=== PATIENT | male | born 1970 | race Caucasian/White ===

== ENCOUNTER 2023-08-25 15:41 | Inpatient (IN) | payer OTHER, SELFPAY ==
--- NOTE | ~2023-08-25 | XR_ITS ---
EXAMINATION: XR chest 2V DATE: 08/25/2023 18:29 INDICATION: Sepsis and animal bite at the right hand TECHNIQUE: PA and lateral views of the chest were obtained. COMPARISON: None FINDINGS: The lungs are clear with no focal airspace opacities, pulmonary edema, pleural effusion or pneumothor ax. Symmetric small nipple shadows project over the cephalad margin of the bilateral anterior sixth r ibs. The cardiomediastinal silhouette is normal. Upper thoracic spondylosis. IMPRESSION: 1. No acute cardiopulmonary disease. Reviewed, dictated and finalized at location A. [employer] BI[employer]HEMIST
--- NOTE | ~2023-08-25 | XR_ITS ---
EXAMINATION: 1. XR hand RT min 3V 2. XR wrist RT min 3V DATE: 08/25/2023 16:01 INDICATION: Right hand dog bite. TECHNIQUE: 4 views of right hand and 4 views of the right wrist were obtained. COMPARISON: None. FINDINGS: RIGHT WRIST: Bone alignment is normal. No fracture. There is severe osteoarthritis of first carpometa carpal joint with loose bodies. RIGHT HAND: Bone alignment is normal. No fracture. There is moderate osteoarthritis of second metacar pophalangeal joint. IMPRESSION: 1. No fracture or radiopaque foreign body. 2. Polyarticular osteoarthritis. Reviewed, dictated and finalized at location A. [employer] PROGRAM COORDINATOR IMPRESSION: 1. No fracture or radiopaque foreign body. 2. Polyarticular osteoarthritis.
[2023-08-25 16:07] VITALS: BP 99/65; PULSE 67; RESP 18; TEMP 36.6; O2SAT 97
--- NOTE | 2023-08-25 18:04 | ED.GENADULT ---
[facility] - General Adult General Chief complaint: Extremity Injury, Upper Stated complaint: R hand injury Time Seen by Provider: 08/25/23 18:04 Source: patient Mode of arrival: ambulatory Limitations: no limitations History of Present Illness HPI narrative: This is a 52-year-old male who presents to the ED with chief complaint of right hand and wrist pain and swelling onset x2 days. Reports that he was bitten by his friend's dog on Friday but was not evaluated for this. 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 He has been trying Tylenol and Aleve with minimal relief. States the pain is mainly in the wrist area and radiates up into the hand. Reports difficulty with range of motion and with making a fist and extending the fingers, due to pain. Denies fevers, chills, nausea, vomiting. Unsure of tetanus status. Does note that the dog is up-to-date on shots. Related Data Home Medications Medication Instructions Recorded Confirmed No Home Medications 08/25/23 08/25/23 Allergies Allergy/AdvReac Type Severity Reaction Status Date / Time No Known Allergies Allergy Verified 08/25/23 23:53 Review of Systems Review of Systems: All systems as dictated in [facility] Family History Family History (Updated 08/26/23 @ 00:05 by Susana Lugo RN) Father Heart attack Liver cancer Mother Hypertension Social History Social History Alcohol intake: never Exam Narrative: GENERAL: Well-appearing, well-nourished, and in no acute distress. HEAD: Normocephalic, atraumatic. EYES: PERRLA and EOMI. ENT: Nares clear, no rhinorrhea or epistaxis. Mucous membranes moist. Oropharynx without tonsillar hypertrophy exudate or other lesions. NECK: Supple. No adenopathy or masses. CHEST: No respiratory distress. Clear to auscultation. No wheezes rales or rhonchi HEART: Tachycardic in the 110s. Regular.. No murmur heard. Normal peripheral pulses. ABDOMEN: Soft, nontender, nondistended, normal active bowel sounds. MSK: LUE: Benign. RUE: significant swelling and tenderness throughout the dorsum of right hand extending into the wrist. Mild erythema. No area of induration or fluctuance. Neurovascularly intact distally. Negative [place] signs. Both hands are visibly soiled. SKIN: Warm, dry, no rash. Mild warmth to the right hand. Three distinct punctate scabbed over lesions to the right wrist and hand NEURO: Alert and oriented x3. No focal deficits. PSYCH: Normal mood and affect. Course Vital Signs Vital signs: Vital Signs Temperature 97.9 F 08/25/23 16:07 Pulse Rate 67 08/25/23 16:07 Respiratory Rate 18 08/25/23 16:07 Blood Pressure 99/65 L 08/25/23 16:07 Pulse Oximetry 97 08/25/23 16:07 Temperature 98.4 F 08/25/23 23:52 Pulse Rate 98 08/25/23 23:52 Respiratory Rate 16 08/25/23 23:52 Blood Pressure 138/77 08/25/23 23:52 Pulse Oximetry 100 08/25/23 23:52 Medical Decision Making MDM Narrative Medical decision making narrative: Medical screening exam performed by advanced practice provider in triage. Vital Signs Vital Signs: Vital Signs Temperature 97.9 F 08/25/23 16:07 Pulse Rate 67 08/25/23 16:07 Respiratory Rate 18 08/25/23 16:07 Blood Pressure 99/65 L 08/25/23 16:07 Pulse Oximetry 97 08/25/23 16:07 Temperature 98.4 F 08/25/23 23:52 Pulse Rate 98 08/25/23 23:52 Respiratory Rate 16 08/25/23 23:52 Blood Pressure 138/77 08/25/23 23:52 Pulse Oximetry 100 08/25/23 23:52 Lab Data 08/25/23 18:19 08/25/23 18:19 Labs: Lab Results 08/25/23 08/25/23 Range/Units 18:19 19:12 WBC 16.5 H (4.5-10.0) K/mm3 RBC 4.21 L (4.6-6.20) M/mm3 Hgb 14.1 (14.0-18.0) g/dL Hct 41.8 L (42.0-52.0) % MCV 99.3 (80-100) fl MCH 33.5 (26-34) pg MCHC 33.7
[2023-08-25 18:05] VITALS: BP 112/74; PULSE 109; RESP 18; O2SAT 98
[2023-08-25 18:26] LABS: Basophils Absolute Auto 0.1 K/mm3 (0.0-0.1); Basophils Percent Auto 0.4 % (0.2-1.2); Eosinophils Absolute Auto 0.1 K/mm3 (0-0.3); Eosinophils Percent Auto 0.5 % (0-4.4); Hematocrit 41.8 % (42.0-52.0); Hemoglobin 14.1 g/dL (14.0-18.0); Immature Granulocyte Absolute 0.11 K/mm3 (0.00-0.031); Immature Granulocyte Percent A 0.7 % (0-0.5); Lymphocytes Absolute Auto 1.62 K/mm3 (0.9-3.2); Lymphocytes Percent Auto 9.8 % (18.3-44.2); Mean Corpuscular HGB Conc 33.7 g/dl (32-36); Mean Corpuscular Hemoglobin 33.5 pg (26-34); Mean Corpuscular Volume 99.3 fl (80-100); Mean Platelet Volume 9.7 fl (7.4-10.4); Monocytes Absolute Auto 1.4 K/mm3 (0.1-0.6); Monocytes Percent Auto 8.6 % (2.6-8.5); Neutrophils Absolute Auto 13.2 K/mm3 (1.3-6.7); Platelet Count Result 267 k/mm3 (150-375); Red Blood Count 4.21 M/mm3 (4.6-6.20); Red Cell Distribution Width 12.2 % (11.5-14.5); White Blood Count 16.5 K/mm3 (4.5-10.0)
[2023-08-25 18:35] LABS: Lactic Acid Reflex 1.8 mmol/L (0.7-2.0)
[2023-08-25 18:37] LABS: Prothrombin Time 13.8 Seconds (11.1-14.7)
[2023-08-25 18:38] LABS: Partial Thromboplastin Time 36.9 SECONDS (22.3-36.8)
[2023-08-25 18:49] LABS: Alanine Aminotransferase 18 U/L (6-50); Albumin Level 4.2 g/dL (3.5-5.1); Alkaline Phosphatase 97 U/L (38-126); Anion Gap 13 mmol/L (8-16); Aspartate Amino Transferase 28 U/L (17-59); Bilirubin,Total 0.7 mg/dL (0.2-1.3); Blood Urea Nitrogen 13 mg/dL (9-20); Calcium 9.2 mg/dL (8.4-10.2); Carbon Dioxide 23 mmol/L (22-30); Chloride 96 mmol/L (98-107); Estimated CRCL calculation 118 ml/min; Estimated Glomerular Filt Rate > 60; Glucose 106 mg/dL (65-110); Potassium 3.3 mmol/L (3.4-5.0); Sodium 132 mmol/L (137-145)
[2023-08-25 19:01] LABS: CRP 26.6 mg/dL (<1.0)
[2023-08-25 19:36] LABS: Appearance Urine Clear (Clear); Bacteria Urine None Seen /hpf; Bilirubin Urine Negative (Negative); Blood Urine Negative (Negative); Color Urine Yellow (Yellow); Glucose Urine UA Negative (Negative); Ketones Urine Trace mg/dL (Negative); Leukocyte Esterase Ur Trace LEU/UL (Negative); Need Manual Microscopic Reviewed; Nitrate Urine Negative (Negative); Protein Urine Trace mg/dL (Negative); RBC Urine 0-2 /hpf (0-2); Specific Grav Ur 1.025 (1.001-1.035); Spermatozoa Urine Present; Squamous Epithelial Cell Urine None seen /hpf (Few); WBC Urine 0-5 /hpf; pH Urine 5.5 (5.0-9.0)
[2023-08-25 19:37] LABS: Add Urine Microscopic? YES
[2023-08-25] MEDS: SODIUM CHLORIDE 0.9% IV 1,000 ML 999 ML IV CONT (20:09)
[2023-08-25] MEDS: TETANUS,DIPHTHERIA,AC PERTUSSIS ADULT (0.5 ML) BOOSTRIX IM (20:09)
[2023-08-25] MEDS: AMPICILLIN SULB 3 GM/NS 100 ML 3 GM/100 ML VIAL IVPB (20:09)
[2023-08-25] MEDS: ONDANSETRON INJ 4 MG/2 ML VIAL IV PUSH (20:09)
[2023-08-25] MEDS: MORPHINE SULFATE (*CRX) 4 MG/ML INJ IV PUSH ×2 (20:10→23:50)
--- NOTE | 2023-08-25 20:56 | ED.UPPEXIN ---
HPI - Extremity Injury (Upper) General Chief Complaint: Extremity Injury, Upper <RADHA Palomo Last Filed: 08/26/23 00:17> Stated Complaint: R hand injury <RADHA Palomo Last Filed: 08/26/23 00:17> Time Seen by Provider: 08/25/23 18:04 <RADHA Palomo Last Filed: 08/26/23 00:17> Source: patient <RADHA Palomo Last Filed: 08/26/23 00:17> Mode of arrival: ambulatory <RADHA Palomo Last Filed: 08/26/23 00:17> Limitations: no limitations <RADHA Palomo Last Filed: 08/26/23 00:17> History of Present Illness HPI narrative: Patient is 50-year-old male who presents the ED with report of right hand pain. Patient reports he was bit by his own dog on Friday. He sustained bite wounds to right wrist and hand. Over last couple of days, patient has developed worsening pain, redness, swelling to his R hand extending into his wrist and forearm. He reports chills last night, denies documented fever. He has not taken anything for the pain today. Denies drainage from the wounds. Dog is up-to-date on its vaccines. Patient's tetanus unknown. <RADHA Palomo Last Filed: 08/26/23 00:17> Related Data Home Medications: Home Medications Medication Instructions Recorded Confirmed No Home Medications 08/25/23 08/25/23 <RADHA Palomo Last Filed: 08/26/23 00:17> Allergies/Adverse Reactions: Allergies Allergy/AdvReac Type Severity Reaction Status Date / Time No Known Allergies Allergy Verified 08/25/23 23:53 <RADHA Palomo Last Filed: 08/26/23 00:17> Review of Systems Review of Systems: CONSTITUTIONAL: See HPI. SKIN: See HPI. MUSCULOSKELETAL: See HPI. NEUROLOGIC: Denies headache, numbness, or weakness. <Patience Guadalupe PA-C - Last Filed: 08/26/23 00:17> All systems reviewed & are unremarkable except as noted in HPI and below <Patience Guadalupe PA-C - Last Filed: 08/26/23 00:17> [facility] Family History Family History: Family History (Updated 08/26/23 @ 00:05 by Susana Lugo RN) Father Heart attack Liver cancer Mother Hypertension <Patience Guadalupe PA-C - Last Filed: 08/26/23 00:17> Social History Social History: Social History Alcohol intake: never <Patience Guadalupe PA-C - Last Filed: 08/26/23 00:17> Exam Narrative: GENERAL: Uncomfortable appearing, well-nourished, non-toxic, in mild acute distress. HEAD: Normocephalic, atraumatic. NECK: Supple. No adenopathy, no masses. RESPIRATORY: Airway patent, respirations nonlabored. Clear to auscultation bilaterally, no rales, rhonchi, wheezing. CARDIOVASCULAR: Borderline tachycardic with regular rhythm without murmurs, rubs, or gallops. Radial pulses 2+ and equal bilaterally. MUSCULOSKELETAL: Moves all extremities. Moderate swelling noted to right hand diffusely, extending almost to elbow. Hand/wrist/ forearm is erythematous, warm, significantly tender to any palpation. Hand almost appears contracted, held in flexed position, pain with any movement of hand/fingers. SKIN: Warm, dry, normal color. No rashes. Small puncture wounds noted to dorsum of right hand and near distal on dorsal surface. Larger wound scabbed over to ventral forearm several cm proximal from wrist. Calluses noted to flexor surfaces of fingers, no wounds seen on flexor surfaces. No drainage from wounds. No focal abscesses or areas of palpable fluctuance. NEURO: A&O X3. Speech clear. Cranial nerves II-XII grossly intact. No ataxic movements. PSYCHIATRIC: Appropriate mood and affect. Normal interaction. <Patience Guadalupe PA-C - Last Filed: 08/26/23 00:17> Course [employer]ENT/PA Physician Supervision This visit was performed by both a physician and an APC. I performed all aspects of the MDM as documen
[2023-08-25] MEDS: POTASSIUM CHLORIDE 20 MEQ ER TABLET 40 MEQ PO (21:05)
[2023-08-25 21:27] LABS: Erythrocyte Sedimentation Rate 25 mm/hr (0-20)
[2023-08-25 21:56] VITALS: BP 114/68; PULSE 106; RESP 18; O2SAT 98
[2023-08-25 22:22] VITALS: BP 154/94; PULSE 101; RESP 18; TEMP 36.4; O2SAT 99
--- NOTE | 2023-08-25 23:40 | ADMGEN ---
This patient, Zac Mcallister, was admitted to 3 [facility] Surg Room 301-01. Patient/family oriented to hospital policies and general routines including ID bracelet, bed and alarms, visiting hours, pain management, procedures, bathroom and other care routines, personal items, smoking policy, room service/diet, and visiting hours. Information on how to activate the Rapid Response Team has been discussed. Patient/Family are encouraged to report perceived risks to care and to ask questions if they do not understand what they are told or what they should do.
[2023-08-25 23:52] VITALS: BP 138/77; PULSE 98; RESP 16; TEMP 36.9; O2SAT 100; BMI 21.2
[2023-08-26] MEDS: AMPICILLIN SULB 3 GM/NS 100 ML 3 GM/100 ML VIAL IVPB ×4 (01:34→20:15)
[2023-08-26] MEDS: MORPHINE SULFATE (*CRX) 4 MG/ML INJ IV PUSH ×4 (02:03→20:38)
[2023-08-26 05:06] VITALS: BP 135/65; PULSE 96; RESP 14; TEMP 36.8; O2SAT 99
[2023-08-26 08:10] LABS: Basophils Absolute Auto 0.1 K/mm3 (0.0-0.1); Basophils Percent Auto 0.3 % (0.2-1.2); Eosinophils Absolute Auto 0.1 K/mm3 (0-0.3); Eosinophils Percent Auto 0.4 % (0-4.4); Hematocrit 41.1 % (42.0-52.0); Hemoglobin 13.5 g/dL (14.0-18.0); Immature Granulocyte Absolute 0.14 K/mm3 (0.00-0.031); Lymphocytes Absolute Auto 1.21 K/mm3 (0.9-3.2); Lymphocytes Percent Auto 8.4 % (18.3-44.2); Mean Corpuscular HGB Conc 32.8 g/dl (32-36); Mean Corpuscular Hemoglobin 33.1 pg (26-34); Mean Corpuscular Volume 100.7 fl (80-100); Monocytes Absolute Auto 1.6 K/mm3 (0.1-0.6); Neutrophils Absolute Auto 11.3 K/mm3 (1.3-6.7); Neutrophils Percent Auto 78.9 % (45.5-73.1); Platelet Count Result 268 k/mm3 (150-375); Red Blood Count 4.08 M/mm3 (4.6-6.20); Red Cell Distribution Width 12.1 % (11.5-14.5); White Blood Count 14.3 K/mm3 (4.5-10.0)
[2023-08-26 08:17] LABS: Lactic Acid Reflex 0.9 mmol/L (0.7-2.0)
[2023-08-26] MEDS: ACETAMINOPHEN 325 MG TABLET 650 MG PO (08:29)
[2023-08-26 08:31] LABS: Anion Gap 7 mmol/L (8-16); Blood Urea Nitrogen 11 mg/dL (9-20); Calcium 8.7 mg/dL (8.4-10.2); Carbon Dioxide 27 mmol/L (22-30); Chloride 97 mmol/L (98-107); Estimated CRCL calculation 113 ml/min; Estimated Glomerular Filt Rate > 60; Glucose 103 mg/dL (65-110); Potassium 4.4 mmol/L (3.4-5.0); Sodium 131 mmol/L (137-145)
[2023-08-26 08:36] LABS: CRP 26.4 mg/dL (<1.0)
[2023-08-26 08:57] LABS: Procalcitonin 4.4 ng/mL
--- NOTE | 2023-08-26 11:54 | WPDCN ---
Assessment and Plan Assessment and plan (1) Dog bite of right hand with infection: Qualifiers: Encounter type: initial encounter Qualified Code(s): S61.451A - Open bite of right hand, initial encounter; L08.9 - Local infection of the skin and subcutaneous tissue, unspecified; W54.0XXA - Bitten by dog, initial encounter Code(s): S61.451A - Open bite of right hand, initial encounter; L08.9 - Local infection of the skin and subcutaneous tissue, unspecified; W54.0XXA - Bitten by dog, initial encounter Status: Acute Assessment and Plan: 52yo male with right hand and forearm cellulitis after dog bite improving with conservative mgmt xray images revwied and agree with report reviwed ER documentation discussed impression and Dx and hopeful expectation for conitnued improvement with conservative mgmt. no surgical intervention indicated at this time. Plan: 1) cont iV abx per primary 2) elevation 3) warm compresses or warm bath soaks bid-tid 4) will continue to follow HPI Data of Consult Date/Time: 08/26/23 11:54 Requesting Physician: Shyann Osborne DO Primary Care Provider: Emmett Tapia MD Consult Narrative Narrative: Zac Mcallister is a 52 year old male admitted for right hand/wrist cellulitis after dog bite bitten by his dog friday morning, cleaned with perxoide and went to work. that evening and the next day the hand became warm, swollen and painful. presented to [facility] and admitted for IV abx and elevation pt notes interval improvement since admission and now able to move a little more and pain improving [facility] Family History Family History (Updated 08/26/23 @ 00:05 by Susana Lugo RN) Father Heart attack Liver cancer Mother Hypertension Social History Social History Smoking packs per day: 0.3 Smoking cigarettes per day: 6.0 Years smoked: 30 Smoking pack-years: 9.00 Smoking status: Current every day smoker Alcohol intake: never Lack of Transportation: No Lack of Food: Never True Current Housing: I Have Housing Concerned About Future Housing: No Difficulty Paying Gas/Electric Bills: No Difficulty Paying for Meds: No Currently Unemployed: No Education: Bachelor's Degree Difficulty w/ Childcare or Family Care: No Spiritual care concerns: No Meds Home Medications and Allergies Home Medications Medication Instructions Recorded Confirmed Type No Home Medications 08/25/23 08/25/23 History Allergies Allergy/AdvReac Type Severity Reaction Status Date / Time No Known Allergies Allergy Verified 08/25/23 23:53 Vital Signs Vital Signs - 24 hr 08/25/23 16:07 08/25/23 18:05 08/25/23 21:56 Temperature 36.6 C Pulse Rate 67 109 H 106 H Respiratory Rate 18 18 18 Blood Pressure 99/65 L 112/74 114/68 Pulse Oximetry 97 98 98 Oxygen Delivery 08/25/23 22:22 08/26/23 00:13 08/25/23 23:52 Temperature 36.4 C L 36.9 C Pulse Rate 101 H 98 Respiratory Rate 18 16 Blood Pressure 154/94 H 138/77 Pulse Oximetry 99 100 Oxygen Delivery Room Air 08/26/23 05:06 08/26/23 08:00 Temperature 36.8 C Pulse Rate 96 Respiratory Rate 14 Blood Pressure 135/65 Pulse Oximetry 99 Oxygen Delivery Room Air Exam Narrative: Gen: right hand and volar forearmwith 3 puncture wounds with dry eschar. right forearm to distal hand dorsum notably edematous without fluctuance and hyperemia/erythema tracking proximally with mild tenderness ROM: limited but moves all digits spontaneously. no pain on passive stretch Vascular: Warm and well perfused Sensation: Intact to light touch with some subjective paresthesia due to edema Results Labs 08/26/23 07:48 08/26/23 07:48 Labs: Short CBC 08/25/23 08/26/23 Range/Units 18:19 07:48 WBC 16.5 H 14.3 H (4.5-10.0) K/mm3 Hgb 14.1 13.5 L (14.0-18.0) g/dL Hct 41.8 L 41.
[2023-08-26 14:15] VITALS: BP 112/73; PULSE 98; RESP 16; TEMP 37.4; O2SAT 94
--- NOTE | 2023-08-26 17:12 | PM.IMHP ---
H&P: HPI History of Present Illness Date/Time: 08/26/23 17:12 Chief Complaint: right hand swelling/ dog bite Narrative: pt reports dog bite recently. he did nothing/nor did he have it evaluted, went back to work. on friday, 1 dayprior to admission his hand was extremely swollen. better now since arrival. still with pain Review of Systems Review of Systems: All systems reviewed & are unremarkable except as noted in HPI and below PMFSH Family History Family History (Updated 08/26/23 @ 00:05 by Susana Lugo RN) Father Heart attack Liver cancer Mother Hypertension Social History Social History Smoking packs per day: 0.3 Smoking cigarettes per day: 6.0 Years smoked: 30 Smoking pack-years: 9.00 Smoking status: Current every day smoker Alcohol intake: never Lack of Transportation: No Lack of Food: Never True Current Housing: I Have Housing Concerned About Future Housing: No Difficulty Paying Gas/Electric Bills: No Difficulty Paying for Meds: No Currently Unemployed: No Education: Bachelor's Degree Difficulty w/ Childcare or Family Care: No Spiritual care concerns: No Meds Home Medications and Allergies Home Medications Medication Instructions Recorded Confirmed Type No Home Medications 08/25/23 08/25/23 History Allergies Allergy/AdvReac Type Severity Reaction Status Date / Time No Known Allergies Allergy Verified 08/25/23 23:53 Vital Signs Vital Signs - 24 hr 08/25/23 18:05 08/25/23 21:56 08/25/23 22:22 Temperature 97.5 F L Pulse Rate 109 H 106 H 101 H Respiratory Rate 18 18 18 Blood Pressure 112/74 114/68 154/94 H Pulse Oximetry 98 98 99 Oxygen Delivery 08/26/23 00:13 08/25/23 23:52 08/26/23 05:06 Temperature 98.4 F 98.3 F Pulse Rate 98 96 Respiratory Rate 16 14 Blood Pressure 138/77 135/65 Pulse Oximetry 100 99 Oxygen Delivery Room Air 08/26/23 08:00 08/26/23 14:15 Temperature 99.3 F Pulse Rate 98 Respiratory Rate 16 Blood Pressure 112/73 Pulse Oximetry 94 Oxygen Delivery Room Air Exam Const: General: comfortable and no acute distress Eyes: Pupils: Equal, round and reactive pupils present Resp: Effort & Inspection: normal respiratory effort Auscultation: clear to auscultation bilaterally Cardio: Rate: regular rate Rhythm: regular rhythm Heart sounds: no gallops, no murmurs and no rubs GI: GI Palp: Yes Soft to palpation Extrem: Other: right hand edematous, tender to palpation with erythema, no defined borders, progresses up to elbow but in decreasing fashion H&P: Results Labs Labs: Short CBC 08/25/23 08/26/23 Range/Units 18:19 07:48 WBC 16.5 H 14.3 H (4.5-10.0) K/mm3 Hgb 14.1 13.5 L (14.0-18.0) g/dL Hct 41.8 L 41.1 L (42.0-52.0) % Plt Count 267 268 (150-375) k/mm3 BMP 08/25/23 08/26/23 18:19 07:48 Sodium 132 L 131 L Potassium 3.3 L 4.4 Chloride 96 L 97 L Carbon Dioxide 23 27 BUN 13 11 Creatinine 0.60 L 0.60 L Glucose 106 103 Calcium 9.2 8.7 Liver Function 08/25/23 Range/Units 18:19 Total Bilirubin 0.7 (0.2-1.3) mg/dL AST 28 (17-59) U/L ALT 18 (6-50) U/L Alkaline Phosphatase 97 (38-126) U/L Albumin 4.2 (3.5-5.1) g/dL Urine 08/25/23 Range/Units 19:12 Urine Color Yellow (Yellow) Urine Appearance Clear (Clear) Urine pH 5.5 (5.0-9.0) Ur Specific [place] 1.025 (1.001-1.035) Urine Protein Trace (Negative) mg/dL Urine Glucose (UA) Negative (Negative) mg/dL Assessment and Plan Assessment and plan (1) Dog bite of right hand with infection: Qualifiers: Encounter type: initial encounter Qualified Code(s): S61.451A - Open bite of right hand, initial encounter; L08.9 - Local infection of the skin and subcutaneous tissue, unspecified; W54.0XXA - Bitten by dog, initial encounter Code(s): S61.451A -
[2023-08-26 20:00] VITALS: PULSE 101; RESP 16; O2SAT 96
[2023-08-26 20:46] VITALS: BP 122/88; PULSE 101; RESP 16; TEMP 36.6; O2SAT 96
[2023-08-27] MEDS: AMPICILLIN SULB 3 GM/NS 100 ML 3 GM/100 ML VIAL IVPB ×4 (01:44→20:15)
[2023-08-27 04:21] VITALS: BP 125/80; PULSE 84; RESP 14; TEMP 36.4; O2SAT 100
[2023-08-27] MEDS: MORPHINE SULFATE (*CRX) 4 MG/ML INJ IV PUSH ×4 (04:26→20:15)
[2023-08-27 06:14] LABS: Basophils Absolute Auto 0.1 K/mm3 (0.0-0.1); Basophils Percent Auto 0.5 % (0.2-1.2); Eosinophils Absolute Auto 0.1 K/mm3 (0-0.3); Eosinophils Percent Auto 0.7 % (0-4.4); Hematocrit 39.8 % (42.0-52.0); Hemoglobin 13.3 g/dL (14.0-18.0); Immature Granulocyte Absolute 0.09 K/mm3 (0.00-0.031); Immature Granulocyte Percent A 0.7 % (0-0.5); Lymphocytes Absolute Auto 1.67 K/mm3 (0.9-3.2); Lymphocytes Percent Auto 13.4 % (18.3-44.2); Mean Corpuscular HGB Conc 33.4 g/dl (32-36); Mean Corpuscular Hemoglobin 33.2 pg (26-34); Mean Corpuscular Volume 99.3 fl (80-100); Mean Platelet Volume 9.9 fl (7.4-10.4); Monocytes Absolute Auto 1.6 K/mm3 (0.1-0.6); Monocytes Percent Auto 13.1 % (2.6-8.5); Neutrophils Absolute Auto 8.9 K/mm3 (1.3-6.7); Neutrophils Percent Auto 71.6 % (45.5-73.1); Platelet Count Result 274 k/mm3 (150-375); Red Blood Count 4.01 M/mm3 (4.6-6.20); White Blood Count 12.4 K/mm3 (4.5-10.0)
[2023-08-27 06:25] LABS: Anion Gap 8 mmol/L (8-16); Blood Urea Nitrogen 14 mg/dL (9-20); Calcium 8.6 mg/dL (8.4-10.2); Carbon Dioxide 27 mmol/L (22-30); Chloride 94 mmol/L (98-107); Estimated CRCL calculation 113 ml/min; Estimated Glomerular Filt Rate > 60; Glucose 107 mg/dL (65-110); Potassium 3.7 mmol/L (3.4-5.0); Sodium 129 mmol/L (137-145)
[2023-08-27 06:49] LABS: Procalcitonin 2.8 ng/mL
[2023-08-27 14:00] VITALS: BP 122/88; PULSE 100; RESP 20; TEMP 36.3; O2SAT 97
--- NOTE | 2023-08-27 17:22 | PM.IMPN ---
Progress Note: A&P Assessment and Plan (1) Dog bite of right hand with infection: Qualifiers: Encounter type: initial encounter Qualified Code(s): S61.451A - Open bite of right hand, initial encounter; L08.9 - Local infection of the skin and subcutaneous tissue, unspecified; W54.0XXA - Bitten by dog, initial encounter Code(s): S61.451A - Open bite of right hand, initial encounter; L08.9 - Local infection of the skin and subcutaneous tissue, unspecified; W54.0XXA - Bitten by dog, initial encounter Status: Acute (2) Sepsis: Qualifiers: Sepsis acute organ dysfunction status: unspecified Sepsis type: sepsis due to unspecified organism Qualified Code(s): A41.9 - Sepsis, unspecified organism Code(s): A41.9 - Sepsis, unspecified organism Status: Acute Plan sepsis resolving. continue to monitor. continue unasyn patient eats one meal a day without any salt, and drinks multiple beers a couple times a week. his apparently chronic hyponatremia may be diet related. continue to monitor. Subjective Date/time seen: 08/27/23 17:22 Interval history: naoe. patient reports great relief in pain. able to sleep now. Review of Systems Review of Systems: All systems reviewed & are unremarkable except as noted in HPI and below Exam Const: General: comfortable Eyes: Pupils: Equal, round and reactive pupils present Resp: Effort & Inspection: normal respiratory effort Auscultation: clear to auscultation bilaterally Cardio: Rate: regular rate Rhythm: regular rhythm Heart sounds: no gallops, no murmurs and no rubs GI: GI Palp: Yes Soft to palpation and No Guarding due to palpation present (GI) Extrem: Other: edema only slightly improved from day prior Objective Data Vital Signs Vital Signs: Vital Signs - 24 hr 08/26/23 20:46 08/26/23 20:00 08/27/23 04:21 Temperature 98 F 97.6 F Pulse Rate 101 H 101 H 84 Respiratory Rate 16 16 14 Blood Pressure 122/88 125/80 Pulse Oximetry 96 96 100 Oxygen Delivery Room Air 08/27/23 09:30 08/27/23 14:00 Temperature 97.4 F L Pulse Rate 100 Respiratory Rate 20 Blood Pressure 122/88 Pulse Oximetry 97 Oxygen Delivery Room Air Intake/Output Intake/Output: Intake & Output 08/24/23 08/25/23 08/26/23 08/27/23 23:59 23:59 23:59 23:59 Intake Total 1100 1600 1500 Balance 1100 1600 1500 Meds/Results Medications: Active Medications Generic Name Dose Route Start Last Admin Trade Name Freq PRN Reason Stop Dose Admin Acetaminophen 650 mg 08/25/23 22:43 08/26/23 08:29 Acetaminophen 325 Mg Tablet PO 650 mg Q4H PRN Administration Mild Pain (1-3) or Fever Ampicillin Sodium/Sulbactam Sodium 3 gm in 100 mls @ 200 mls/hr 08/26/23 02:00 08/27/23 14:50 Unasyn 3 Gm/Ns 100 Ml IVPB Infused Q6H ROLANDO Infusion Morphine Sulfate 4 mg 08/25/23 22:43 08/27/23 15:18 Morphine Sulfate (*Crx) 4 Mg/Ml Inj IV PUSH 4 mg Q2H PRN Administration Pain Rated 7-10 Radiology Results: ITS Impressions Hand X-Ray 08/25/23 16:03 IMPRESSION: 1. No fracture or radiopaque foreign body. 2. Polyarticular osteoarthritis. Wrist X-Ray 08/25/23 16:03 IMPRESSION: 1. No fracture or radiopaque foreign body. 2. Polyarticular osteoarthritis. Chest X-Ray 08/25/23 18:41 IMPRESSION: 1. No acute cardiopulmonary disease. Labs Labs: Laboratory Results - last 24 hr 08/27/23 05:21 WBC 12.4 H RBC 4.01 L Hgb 13.3 L Hct 39.8 L MCV 99.3 MCH 33.2 MCHC 33.4 RDW 12.0 Plt Count 274 MPV 9.9 Immature Gran % (Auto) 0.7 H Neut % (Auto) 71.6 Lymph % (Auto) 13.[address] [place] % (Auto) 13.1 H Eos % (Auto) 0.7 Baso % (Auto) 0.5 Lymph # (Auto) 1.67 [place] # (Auto) 1.6 H Eos # (Auto) 0.1 Baso # (Auto) 0.1 Abs Immat Gran (auto) 0.09 H Absolute Neuts (auto) 8.9 H Absolute Nucleated RBC 0.0 Nucleated RBC % 0.0 Sodium 129 L Potassium 3.7 Chloride 94 L Carbon Di
--- NOTE | 2023-08-27 19:26 | PC.NURSE ---
On 08/27/23, the DISSOLVER OPERATOR, Pamela Martínez, provided care and completed [facility] documentation on this patient. I have reviewed the DISSOLVER OPERATOR's documentation and agree with the findings.
[2023-08-27 20:00] VITALS: PULSE 83; RESP 16; O2SAT 95
[2023-08-27 20:17] VITALS: BP 121/92; PULSE 83; RESP 16; TEMP 36.1; O2SAT 95
[2023-08-28] MEDS: AMPICILLIN SULB 3 GM/NS 100 ML 3 GM/100 ML VIAL IVPB ×4 (01:29→20:06)
[2023-08-28 05:27] VITALS: BP 122/78; PULSE 83; RESP 16; TEMP 36.3; O2SAT 96
[2023-08-28] MEDS: MORPHINE SULFATE (*CRX) 4 MG/ML INJ IV PUSH ×4 (05:42→20:12)
[2023-08-28 06:09] LABS: Basophils Absolute Auto 0.1 K/mm3 (0.0-0.1); Basophils Percent Auto 0.8 % (0.2-1.2); Eosinophils Absolute Auto 0.1 K/mm3 (0-0.3); Eosinophils Percent Auto 1.1 % (0-4.4); Hemoglobin 13.5 g/dL (14.0-18.0); Immature Granulocyte Absolute 0.16 K/mm3 (0.00-0.031); Immature Granulocyte Percent A 1.5 % (0-0.5); Lymphocytes Absolute Auto 1.99 K/mm3 (0.9-3.2); Lymphocytes Percent Auto 18.1 % (18.3-44.2); Mean Corpuscular HGB Conc 32.9 g/dl (32-36); Mean Corpuscular Hemoglobin 33.1 pg (26-34); Mean Corpuscular Volume 100.5 fl (80-100); Mean Platelet Volume 9.8 fl (7.4-10.4); Monocytes Absolute Auto 1.4 K/mm3 (0.1-0.6); Monocytes Percent Auto 12.9 % (2.6-8.5); Neutrophils Absolute Auto 7.2 K/mm3 (1.3-6.7); Neutrophils Percent Auto 65.6 % (45.5-73.1); Platelet Count Result 311 k/mm3 (150-375); Red Blood Count 4.08 M/mm3 (4.6-6.20); Red Cell Distribution Width 11.9 % (11.5-14.5)
[2023-08-28 06:15] LABS: Anion Gap 9 mmol/L (8-16); Blood Urea Nitrogen 16 mg/dL (9-20); Calcium 8.8 mg/dL (8.4-10.2); Carbon Dioxide 25 mmol/L (22-30); Chloride 96 mmol/L (98-107); Estimated CRCL calculation 98 ml/min; Estimated Glomerular Filt Rate > 60; Glucose 117 mg/dL (65-110); Potassium 4.1 mmol/L (3.4-5.0); Sodium 130 mmol/L (137-145)
[2023-08-28 06:57] LABS: Procalcitonin 1.8 ng/mL
--- NOTE | 2023-08-28 11:20 | PM.IMPN ---
Progress Note: A&P Assessment and Plan (1) Dog bite of right hand with infection: Qualifiers: Encounter type: initial encounter Qualified Code(s): S61.451A - Open bite of right hand, initial encounter; L08.9 - Local infection of the skin and subcutaneous tissue, unspecified; W54.0XXA - Bitten by dog, initial encounter Code(s): S61.451A - Open bite of right hand, initial encounter; L08.9 - Local infection of the skin and subcutaneous tissue, unspecified; W54.0XXA - Bitten by dog, initial encounter Status: Acute Plan one more day of IV unasyn, leukocytosis and procal coming down. starting to see the wrinkles on his right hand 2/2 relative decrease in edema. if still improving tomorrow, home on PO abx, likely augmentin chronic hyponatremia, encourage better PO and salt intake. ctm. lovenox qday for DVT prophlyaxis stable. Subjective Date/time seen: 08/28/23 11:20 Interval history: NAOE. pt believes swelling and pain is again better Review of Systems Review of Systems: All systems reviewed & are unremarkable except as noted in HPI and below Exam Const: General: comfortable and no acute distress Eyes: Pupils: Equal, round and reactive pupils present Resp: Effort & Inspection: normal respiratory effort Auscultation: clear to auscultation bilaterally, no crackles, no rales and no rhonchi Cardio: Rate: regular rate Rhythm: regular rhythm Heart sounds: no gallops, no murmurs and no rubs GI: GI Palp: Yes Soft to palpation and No Tenderness to palpation present (GI) Extrem: General: edema Other: poor skin turgor of right hand starting to appear, relative decrease swelling, pain to deep touch. sensation intact Objective Data Vital Signs Vital Signs: Vital Signs - 24 hr 08/27/23 14:00 08/27/23 20:17 08/27/23 20:00 Temperature 97.4 F L 97 F L Pulse Rate 100 83 83 Respiratory Rate 20 16 16 Blood Pressure 122/88 121/92 H Pulse Oximetry 97 95 95 Oxygen Delivery Room Air 08/28/23 05:27 Temperature 97.3 F L Pulse Rate 83 Respiratory Rate 16 Blood Pressure 122/78 Pulse Oximetry 96 Oxygen Delivery Intake/Output Intake/Output: Intake & Output 08/25/23 08/26/23 08/27/23 08/28/23 23:59 23:59 23:59 23:59 Intake Total 1100 1600 2400 980 Balance 1100 1600 2400 980 Meds/Results Medications: Active Medications Generic Name Dose Route Start Last Admin Trade Name Freq PRN Reason Stop Dose Admin Acetaminophen 650 mg 08/25/23 22:43 08/26/23 08:29 Acetaminophen 325 Mg Tablet PO 650 mg Q4H PRN Administration Mild Pain (1-3) or Fever Ampicillin Sodium/Sulbactam Sodium 3 gm in 100 mls @ 200 mls/hr 08/26/23 02:00 08/28/23 09:54 Unasyn 3 Gm/Ns 100 Ml IVPB 200 mls/hr Q6H ROLANDO Administration Morphine Sulfate 4 mg 08/25/23 22:43 08/28/23 10:02 Morphine Sulfate (*Crx) 4 Mg/Ml Inj IV PUSH 4 mg Q2H PRN Administration Pain Rated 7-10 Radiology Results: ITS Impressions Hand X-Ray 08/25/23 16:03 IMPRESSION: 1. No fracture or radiopaque foreign body. 2. Polyarticular osteoarthritis. Wrist X-Ray 08/25/23 16:03 IMPRESSION: 1. No fracture or radiopaque foreign body. 2. Polyarticular osteoarthritis. Chest X-Ray 08/25/23 18:41 IMPRESSION: 1. No acute cardiopulmonary disease. Labs Labs: Laboratory Results - last 24 hr 08/28/23 05:34 WBC 11.0 H RBC 4.08 L Hgb 13.5 L Hct 41.0 L MCV 100.5 H MCH 33.1 MCHC 32.9 RDW 11.9 Plt Count 311 MPV 9.8 Immature Gran % (Auto) 1.5 H Neut % (Auto) 65.6 Lymph % (Auto) 18.1 L Rowan % (Auto) 12.9 H Eos % (Auto) 1.1 Baso % (Auto) 0.8 Lymph # (Auto) 1.99 Rowan # (Auto) 1.4 H Eos # (Auto) 0.1 Baso # (Auto) 0.1 Abs Immat Gran (auto) 0.16 H Absolute Neuts (auto) 7.2 H Absolute Nucleated RBC 0.0 Nucleated RBC % 0.0 Sodium 130 L Potassium 4.1 Chloride 96 L Carbon Dioxide 25 Anion Gap 9 BUN 16 Creatinine 0.70 Estim Creat Clear
[2023-08-28] MEDS: ENOXAPARIN 40 MG/0.4 ML SYRINGE SUB-Q (12:09)
[2023-08-28 14:00] VITALS: BP 104/69; PULSE 89; RESP 16; TEMP 36.7; O2SAT 97
--- NOTE | 2023-08-28 19:37 | PC.NURSE ---
Pamela Martínez provided care for this patient on 08/28/23. I have reviewed her assessments and agree with her charting
[2023-08-28 20:05] VITALS: O2SAT 97
[2023-08-28 22:00] VITALS: BP 122/80; PULSE 89; RESP 14; TEMP 36.9; O2SAT 96
[2023-08-29] MEDS: AMPICILLIN SULB 3 GM/NS 100 ML 3 GM/100 ML VIAL IVPB ×4 (01:29→21:14)
[2023-08-29 06:00] VITALS: BP 99/72; PULSE 87; RESP 14; TEMP 36.6; O2SAT 92
[2023-08-29 06:38] LABS: Hematocrit 41.9 % (42.0-52.0); Hemoglobin 13.8 g/dL (14.0-18.0); Mean Corpuscular HGB Conc 32.9 g/dl (32-36); Mean Corpuscular Hemoglobin 32.5 pg (26-34); Mean Corpuscular Volume 98.8 fl (80-100); Mean Platelet Volume 9.7 fl (7.4-10.4); Platelet Count Result 360 k/mm3 (150-375); Red Blood Count 4.24 M/mm3 (4.6-6.20); Red Cell Distribution Width 11.9 % (11.5-14.5); White Blood Count 10.9 K/mm3 (4.5-10.0)
[2023-08-29 06:46] LABS: Anion Gap 10 mmol/L (8-16); Blood Urea Nitrogen 17 mg/dL (9-20); Calcium 9.2 mg/dL (8.4-10.2); Carbon Dioxide 26 mmol/L (22-30); Chloride 96 mmol/L (98-107); Estimated CRCL calculation 98 ml/min; Estimated Glomerular Filt Rate > 60; Glucose 110 mg/dL (65-110); Sodium 132 mmol/L (137-145)
[2023-08-29] MEDS: ENOXAPARIN 40 MG/0.4 ML SYRINGE SUB-Q (08:25)
[2023-08-29] MEDS: MORPHINE SULFATE (*CRX) 4 MG/ML INJ IV PUSH ×2 (08:30→13:46)
--- NOTE | 2023-08-29 08:55 | PM.IMPN ---
Progress Note: A&P Assessment and Plan (1) Dog bite of right hand with infection: Qualifiers: Encounter type: initial encounter Qualified Code(s): S61.451A - Open bite of right hand, initial encounter; L08.9 - Local infection of the skin and subcutaneous tissue, unspecified; W54.0XXA - Bitten by dog, initial encounter Code(s): S61.451A - Open bite of right hand, initial encounter; L08.9 - Local infection of the skin and subcutaneous tissue, unspecified; W54.0XXA - Bitten by dog, initial encounter Status: Acute Plan Right hand and arm cellulitis one more day of IV unasyn, leukocytosis and procal coming down. starting to see the wrinkles on his right hand 2/2 relative decrease in edema. Patient has restricted movement of right hand and right wrist. I have discussed this case with plastic surgeon, appreciate plastic surgeon's recommendations. No indication of surgical intervention, start higher dose Motrin, warm compression chronic hyponatremia, encourage better PO and salt intake. ctm. Add sodium chloride 1 g t.i.d. p.o. lovenox qday for DVT prophlyaxis stable. Subjective Date/time seen: 08/29/23 08:55 Interval history: I saw and examined patient today, patient still has severe pain of right hand, swelling, restricted movement of the right wrist Exam Narrative: GENERAL: Pleasant, in no acute distress. Well-nourished. - EYES: EOMI. Anicteric. - HENT: Moist mucous membranes. - LUNGS: Clear to auscultation bilaterally, no wheezing, rhonchi, or rales. - CARDIOVASCULAR: Regular rate and rhythm. No murmur. No JVD. - ABDOMEN: Soft, non-tender and non-distended. No palpable masses. - EXTREMITIES: No edema. Peripheral pulses 2+. Non-tender. - NEUROLOGIC: No focal neurological deficits. CN II-XII grossly intact. - PSYCHIATRIC: Awake, Alert and oriented x 3. Appropriate mood and affect. - SKIN:?right hand and forearm cellulitis, swelling of right hand, wrist movement is restricted, pulse palpable - LYMPH: No cervical lymphadenopathy. Objective Data Vital Signs Vital Signs: Vital Signs - 24 hr 08/28/23 10:20 08/28/23 14:00 08/28/23 20:00 Temperature 98.1 F Pulse Rate 89 Respiratory Rate 16 Blood Pressure 104/69 Pulse Oximetry 97 Oxygen Delivery Room Air Room Air 08/28/23 22:00 08/28/23 20:05 08/29/23 06:00 Temperature 98.4 F 97.9 F Pulse Rate 89 87 Respiratory Rate 14 14 Blood Pressure 122/80 99/72 L Pulse Oximetry 96 97 92 Oxygen Delivery Room Air Intake/Output Intake/Output: Intake & Output 08/26/23 08/27/23 08/28/23 08/29/23 23:59 23:59 23:59 23:59 Intake Total 1600 2400 2420 100 Balance 1600 2400 2420 100 Meds/Results Medications: Active Medications Generic Name Dose Route Start Last Admin Trade Name Omarq PRN Reason Stop Dose Admin Acetaminophen 650 mg 08/25/23 22:43 08/26/23 08:29 Acetaminophen 325 Mg Tablet PO 650 mg Q4H PRN Administration Mild Pain (1-3) or Fever Enoxaparin Sodium 40 mg 08/28/23 11:20 08/29/23 08:25 Enoxaparin 40 Mg/0.4 Ml Syringe SUB-Q 40 mg DAILY ROLANDO Administration Ampicillin Sodium/Sulbactam Sodium 3 gm in 100 mls @ 200 mls/hr 08/26/23 02:00 08/29/23 08:25 Unasyn 3 Gm/Ns 100 Ml IVPB 200 mls/hr Q6H ROLANDO Administration Morphine Sulfate 4 mg 08/25/23 22:43 08/29/23 08:30 Morphine Sulfate (*Crx) 4 Mg/Ml Inj IV PUSH 4 mg Q2H PRN Administration Pain Rated 7-10 Radiology Results: ITS Impressions Hand X-Ray 08/25/23 16:03 IMPRESSION: 1. No fracture or radiopaque foreign body. 2. Polyarticular osteoarthritis. Wrist X-Ray 08/25/23 16:03 IMPRESSION: 1. No fracture or radiopaque foreign body. 2. Polyarticular osteoarthritis. Chest X-Ray 08/25/23 18:41 IMPRESSION: 1. No acute cardiopulmonary disease. Labs Labs: Laboratory Results - last 24 hr 08/29/23 06:01 WBC 10.9 H RBC 4.24 L Hgb 13.8 L Hct 41.9 L MCV 98.8 MCH 32.5
[2023-08-29] MEDS: SODIUM CHLORIDE 1 GM TABLET PO ×3 (09:37→16:45)
--- NOTE | 2023-08-29 13:34 | WPDPN ---
Progress Note: A&P Assessment and Plan (1) Dog bite of right hand with infection: Qualifiers: Encounter type: initial encounter Qualified Code(s): S61.451A - Open bite of right hand, initial encounter; L08.9 - Local infection of the skin and subcutaneous tissue, unspecified; W54.0XXA - Bitten by dog, initial encounter Code(s): S61.451A - Open bite of right hand, initial encounter; L08.9 - Local infection of the skin and subcutaneous tissue, unspecified; W54.0XXA - Bitten by dog, initial encounter Status: Acute Plan 52yo male with resolving right hand dog bite cellulitis though persistant inflammation and pain. discussed imrpession and suspected Dx and noted conservative treatment recs to hopefully improve. no indication for surgical intervention at this time Plan: 1) elevation - 2-3 pillows 2) warm compresses or warm water soaks TID 3) high dose nsaids - i.e. 800mg ibuporofen [id number] if ok with primary Subjective Date/time seen: 08/29/23 13:34 Interval history: called my primary doctor noting patient hadn't been discharged and was still concerned regarding the right hand swelling and pain. patient seen and examined at bedside noting he was initially feeling better but he continues to have notable pain and swelling on the right hand despite the erythema improving. pt notes warm compresses or soaks haven't been done and hasn't really been elevating hand to any extent Exam Narrative: Gen: right hand stable dry eschar healing puncture sites on volar forearm and dorsum right hand. moderate edema persists around radial dorsal side of his hand which is relatively distant from bite wounds though pt notes dog was clamped on that area for a while. no erythema appreciated.no fluctuance ROM: patient tender with radial wrist motion as in brock test but fingers and ipjoints relatively supple though resisted full finger motion from stiffness and soreness. no pain on passive stretch. no tenderness over flexor sheath Vascular: Warm and well perfused Sensation: Intact to light touch Objective Data Vital Signs Vital Signs: Vital Signs - 24 hr 08/28/23 14:00 08/28/23 20:00 08/28/23 22:00 Temperature 36.7 C 36.9 C Pulse Rate 89 89 Respiratory Rate 16 14 Blood Pressure 104/69 122/80 Pulse Oximetry 97 96 Oxygen Delivery Room Air 08/28/23 20:05 08/29/23 06:00 08/29/23 08:25 Temperature 36.6 C Pulse Rate 87 Respiratory Rate 14 Blood Pressure 99/72 L Pulse Oximetry 97 92 Oxygen Delivery Room Air Room Air Intake/Output Intake/Output: Intake & Output 08/26/23 08/27/23 08/28/23 08/29/23 23:59 23:59 23:59 23:59 Intake Total 1600 2400 2420 680 Balance 1600 2400 2420 680 Meds/Results Medications: Active Medications Generic Name Dose Route Start Last Admin Trade Name Freq PRN Reason Stop Dose Admin Acetaminophen 650 mg 08/25/23 22:43 08/26/23 08:29 Acetaminophen 325 Mg Tablet PO 650 mg Q4H PRN Administration Mild Pain (1-3) or Fever Enoxaparin Sodium 40 mg 08/28/23 11:20 08/29/23 08:25 Enoxaparin 40 Mg/0.4 Ml Syringe SUB-Q 40 mg DAILY ROLANDO Administration Ampicillin Sodium/Sulbactam Sodium 3 gm in 100 mls @ 200 mls/hr 08/26/23 02:00 08/29/23 09:10 Unasyn 3 Gm/Ns 100 Ml IVPB Infused Q6H ROLANDO Infusion Morphine Sulfate 4 mg 08/25/23 22:43 08/29/23 08:30 Morphine Sulfate (*Crx) 4 Mg/Ml Inj IV PUSH 4 mg Q2H PRN Administration Pain Rated 7-10 Sodium Chloride 1 gm 08/29/23 09:00 08/29/23 09:37 Sodium Chloride 1 Gm Tablet PO 1 gm TID ROLANDO Administration Radiology Results: ITS Impressions Hand X-Ray 08/25/23 16:03 IMPRESSION: 1. No fracture or radiopaque foreign body. 2. Polyarticular osteoarthritis. Wrist X-Ray 08/25/23 16:03 IMPRESSION: 1. No fracture or radiopaque foreign body. 2. Polyarticular osteoarthritis. Chest X-Ray 08/25/23 18:41 IMPRESSION: 1. No acute cardiopulmonary dis
[2023-08-29 14:00] VITALS: BP 128/85; PULSE 85; RESP 15; TEMP 36.1; O2SAT 97
[2023-08-29] MEDS: IBUPROFEN 400 MG TABLET 800 MG PO ×2 (15:22→21:13)
[2023-08-29] MEDS: HYDROcodone/acetaminophen (*CRX) 5-325 MG TABLET 1 TAB PO ×2 (17:06→21:18)
[2023-08-29] MEDS: HYDROmorphone HCL INJ (*CRX) 1 MG/ML SYR 0.5 MG IV PUSH ×2 (17:07→21:18)
[2023-08-29 21:03] VITALS: BP 114/73; PULSE 66; RESP 13; TEMP 36.1; O2SAT 97
[2023-08-29] MEDS: FAMOTIDINE 20 MG TABLET PO (21:13)
[2023-08-30] MEDS: AMPICILLIN SULB 3 GM/NS 100 ML 3 GM/100 ML VIAL IVPB ×4 (02:07→20:57)
[2023-08-30] MEDS: HYDROcodone/acetaminophen (*CRX) 5-325 MG TABLET 1 TAB PO ×2 (02:55→08:39)
[2023-08-30] MEDS: HYDROmorphone HCL INJ (*CRX) 1 MG/ML SYR 0.5 MG IV PUSH ×3 (04:30→20:56)
[2023-08-30] MEDS: IBUPROFEN 400 MG TABLET 800 MG PO ×3 (05:17→20:56)
[2023-08-30 05:38] VITALS: BP 106/64; PULSE 59; RESP 13; TEMP 36.1; O2SAT 95
[2023-08-30] MEDS: SODIUM CHLORIDE 1 GM TABLET PO ×3 (08:40→16:31)
[2023-08-30] MEDS: ENOXAPARIN 40 MG/0.4 ML SYRINGE SUB-Q (08:40)
[2023-08-30] MEDS: FAMOTIDINE 20 MG TABLET PO ×2 (08:40→20:57)
--- NOTE | 2023-08-30 09:44 | PM.IMPN ---
Progress Note: A&P Assessment and Plan (1) Dog bite of right hand with infection: Qualifiers: Encounter type: initial encounter Qualified Code(s): S61.451A - Open bite of right hand, initial encounter; L08.9 - Local infection of the skin and subcutaneous tissue, unspecified; W54.0XXA - Bitten by dog, initial encounter Code(s): S61.451A - Open bite of right hand, initial encounter; L08.9 - Local infection of the skin and subcutaneous tissue, unspecified; W54.0XXA - Bitten by dog, initial encounter Status: Acute Plan Right hand and arm cellulitis one more day of IV unasyn, leukocytosis and procal coming down. starting to see the wrinkles on his right hand 2/2 relative decrease in edema. Patient has restricted movement of right hand and right wrist. I have discussed this case with plastic surgeon, appreciate plastic surgeon's recommendations. No indication of surgical intervention, start higher dose Motrin, warm compression chronic hyponatremia, encourage better PO and salt intake. ctm. Add sodium chloride 1 g t.i.d. p.o. 134 today lovenox qday for DVT prophlyaxis stable. january dc on Friday with oral abx Subjective Date/time seen: 08/30/23 09:44 Interval history: I saw and examined patient today, patient still has severe pain of right hand, swelling, restricted movement of the right wrist. but the swelling improves Exam Narrative: GENERAL: Pleasant, in no acute distress. Well-nourished. - EYES: EOMI. Anicteric. - HENT: Moist mucous membranes. - LUNGS: Clear to auscultation bilaterally, no wheezing, rhonchi, or rales. - CARDIOVASCULAR: Regular rate and rhythm. No murmur. No JVD. - ABDOMEN: Soft, non-tender and non-distended. No palpable masses. - EXTREMITIES: No edema. Peripheral pulses 2+. Non-tender. - NEUROLOGIC: No focal neurological deficits. CN II-XII grossly intact. - PSYCHIATRIC: Awake, Alert and oriented x 3. Appropriate mood and affect. - SKIN:?right hand and forearm cellulitis, swelling of right hand, wrist movement is restricted, pulse palpable - LYMPH: No cervical lymphadenopathy. Objective Data Vital Signs Vital Signs: Vital Signs - 24 hr 08/29/23 14:00 08/29/23 21:03 08/29/23 20:00 Temperature 97 F L 96.9 F L Pulse Rate 85 66 Respiratory Rate 15 13 Blood Pressure 128/85 114/73 Pulse Oximetry 97 97 Oxygen Delivery Room Air 08/30/23 05:38 Temperature 96.9 F L Pulse Rate 59 L Respiratory Rate 13 Blood Pressure 106/64 Pulse Oximetry 95 Oxygen Delivery Intake/Output Intake/Output: Intake & Output 08/27/23 08/28/23 08/29/23 08/30/23 23:59 23:59 23:59 23:59 Intake Total 2400 2420 2240 850 Balance 2400 2420 2240 850 Meds/Results Medications: Active Medications Generic Name Dose Route Start Last Admin Trade Name Freq PRN Reason Stop Dose Admin Acetaminophen 650 mg 08/25/23 22:43 08/26/23 08:29 Acetaminophen 325 Mg Tablet PO 650 mg Q4H PRN Administration Mild Pain (1-3) or Fever Hydrocodone Bitart/Acetaminophen 1 tab 08/29/23 16:52 08/30/23 08:39 Hydrocodone/Acetaminophen (*Crx) 5-325 Mg Tablet PO 1 tab Q4H PRN Administration Pain Rated 4-6 Enoxaparin Sodium 40 mg 08/28/23 11:20 08/30/23 08:40 Enoxaparin 40 Mg/0.4 Ml Syringe SUB-Q 40 mg DAILY ROLANDO Administration Famotidine 20 mg 08/29/23 21:00 08/30/23 08:40 Famotidine 20 Mg Tablet PO 20 mg Q12HR ROLANDO Administration Hydromorphone HCl 0.5 mg 08/29/23 16:52 08/30/23 04:30 Hydromorphone Hcl Inj (*Crx) 1 Mg/Ml Syr IV PUSH 0.5 mg Q4H PRN Administration Pain Rated 7-10 Ampicillin Sodium/Sulbactam Sodium 3 gm in 100 mls @ 200 mls/hr 08/26/23 02:00 08/30/23 08:41 Unasyn 3 Gm/Ns 100 Ml IVPB 200 mls/hr Q6H ROLANDO Administration Ibuprofen 800 mg 08/29/23 14:40 08/30/23 05:17 Ibuprofen 400 Mg Tablet PO 800 mg Q8HR ROLANDO Administration Sodium Chloride 1 gm 08/29/23 09:00 08/30/23 08:40 Sodium Chlorid
[2023-08-30 12:38] LABS: Basophils Absolute Auto 0.1 K/mm3 (0.0-0.1); Basophils Percent Auto 1.1 % (0.2-1.2); Eosinophils Absolute Auto 0.2 K/mm3 (0-0.3); Eosinophils Percent Auto 1.7 % (0-4.4); Hematocrit 40.4 % (42.0-52.0); Hemoglobin 13.5 g/dL (14.0-18.0); Immature Granulocyte Absolute 0.21 K/mm3 (0.00-0.031); Immature Granulocyte Percent A 2.3 % (0-0.5); Lymphocytes Absolute Auto 2.13 K/mm3 (0.9-3.2); Lymphocytes Percent Auto 22.8 % (18.3-44.2); Mean Corpuscular HGB Conc 33.4 g/dl (32-36); Mean Corpuscular Hemoglobin 33.5 pg (26-34); Mean Corpuscular Volume 100.2 fl (80-100); Mean Platelet Volume 9.3 fl (7.4-10.4); Monocytes Absolute Auto 1.1 K/mm3 (0.1-0.6); Monocytes Percent Auto 12.2 % (2.6-8.5); Neutrophils Absolute Auto 5.6 K/mm3 (1.3-6.7); Neutrophils Percent Auto 59.9 % (45.5-73.1); Platelet Count Result 395 k/mm3 (150-375); Red Blood Count 4.03 M/mm3 (4.6-6.20); Red Cell Distribution Width 11.8 % (11.5-14.5); White Blood Count 9.3 K/mm3 (4.5-10.0)
[2023-08-30 12:52] LABS: Anion Gap 11 mmol/L (8-16); Blood Urea Nitrogen 24 mg/dL (9-20); Carbon Dioxide 24 mmol/L (22-30); Chloride 99 mmol/L (98-107); Estimated CRCL calculation 87 ml/min; Estimated Glomerular Filt Rate > 60; Glucose 107 mg/dL (65-110); Potassium 4.2 mmol/L (3.4-5.0); Sodium 134 mmol/L (137-145)
[2023-08-30 14:00] VITALS: BP 98/70; PULSE 79; RESP 14; TEMP 36.5; O2SAT 94
[2023-08-30 21:27] VITALS: BP 118/75; PULSE 74; RESP 13; TEMP 36.7; O2SAT 95
[2023-08-31] MEDS: AMPICILLIN SULB 3 GM/NS 100 ML 3 GM/100 ML VIAL IVPB ×4 (02:13→20:31)
[2023-08-31 05:19] VITALS: BP 108/83; PULSE 72; RESP 14; TEMP 36.8; O2SAT 91
[2023-08-31] MEDS: IBUPROFEN 400 MG TABLET 800 MG PO ×3 (06:05→20:31)
[2023-08-31 08:13] LABS: Basophils Absolute Auto 0.1 K/mm3 (0.0-0.1); Basophils Percent Auto 0.8 % (0.2-1.2); Eosinophils Absolute Auto 0.2 K/mm3 (0-0.3); Eosinophils Percent Auto 1.7 % (0-4.4); Hematocrit 41.1 % (42.0-52.0); Hemoglobin 13.5 g/dL (14.0-18.0); Immature Granulocyte Absolute 0.27 K/mm3 (0.00-0.031); Immature Granulocyte Percent A 2.7 % (0-0.5); Lymphocytes Percent Auto 21.1 % (18.3-44.2); Mean Corpuscular HGB Conc 32.8 g/dl (32-36); Mean Corpuscular Volume 100.5 fl (80-100); Mean Platelet Volume 9.4 fl (7.4-10.4); Monocytes Absolute Auto 1.2 K/mm3 (0.1-0.6); Monocytes Percent Auto 12.2 % (2.6-8.5); Neutrophils Absolute Auto 6.1 K/mm3 (1.3-6.7); Neutrophils Percent Auto 61.5 % (45.5-73.1); Platelet Count Result 436 k/mm3 (150-375); Red Blood Count 4.09 M/mm3 (4.6-6.20); Red Cell Distribution Width 11.7 % (11.5-14.5)
[2023-08-31 08:21] LABS: Alanine Aminotransferase 31 U/L (6-50); Albumin Level 3.7 g/dL (3.5-5.1); Alkaline Phosphatase 87 U/L (38-126); Anion Gap 12 mmol/L (8-16); Aspartate Amino Transferase 29 U/L (17-59); Bilirubin,Total 0.5 mg/dL (0.2-1.3); Blood Urea Nitrogen 22 mg/dL (9-20); Calcium 9.2 mg/dL (8.4-10.2); Carbon Dioxide 23 mmol/L (22-30); Chloride 96 mmol/L (98-107); Estimated CRCL calculation 113 ml/min; Estimated Glomerular Filt Rate > 60; Glucose 100 mg/dL (65-110); Potassium 4.4 mmol/L (3.4-5.0); Sodium 131 mmol/L (137-145)
[2023-08-31] MEDS: SODIUM CHLORIDE 1 GM TABLET PO ×3 (08:31→17:06)
[2023-08-31] MEDS: ENOXAPARIN 40 MG/0.4 ML SYRINGE SUB-Q (08:31)
[2023-08-31] MEDS: FAMOTIDINE 20 MG TABLET PO ×2 (08:31→20:31)
[2023-08-31 14:00] VITALS: BP 109/70; PULSE 69; RESP 16; TEMP 36.7; O2SAT 96
--- NOTE | 2023-08-31 16:29 | PM.IMPN ---
Progress Note: A&P Assessment and Plan (1) Dog bite of right hand with infection: Qualifiers: Encounter type: initial encounter Qualified Code(s): S61.451A - Open bite of right hand, initial encounter; L08.9 - Local infection of the skin and subcutaneous tissue, unspecified; W54.0XXA - Bitten by dog, initial encounter Code(s): S61.451A - Open bite of right hand, initial encounter; L08.9 - Local infection of the skin and subcutaneous tissue, unspecified; W54.0XXA - Bitten by dog, initial encounter Status: Acute (2) Sepsis: Qualifiers: Sepsis acute organ dysfunction status: unspecified Sepsis type: sepsis due to unspecified organism Qualified Code(s): A41.9 - Sepsis, unspecified organism Code(s): A41.9 - Sepsis, unspecified organism Status: Acute (3) Hyponatremia: Code(s): E87.1 - Hypo-osmolality and hyponatremia Status: Acute (4) Right hand pain: Code(s): M79.641 - Pain in right hand Status: Acute (5) Leukocytosis: Code(s): D72.829 - Elevated white blood cell count, unspecified Status: Acute Plan Right hand and arm cellulitis continue with IV unasyn (Day #6), leukocytosis and procal coming down. starting to see the wrinkles on his right hand 2/2 relative decrease in edema. Patient has restricted movement of right hand and right wrist. I have discussed this case with plastic surgeon, appreciate plastic surgeon's recommendations. No indication of surgical intervention, Cobtinue with high dose Motrin, warm compression Chronic hyponatremia Encourage better PO and salt intake. ctm. Add sodium chloride 1 g t.i.d. p.o. Sodium level is 134 today lovenox qday for DVT prophlyaxis ? Patient seen and examined at bedside during my morning rounds ? Collaborated with patient's nurse at the bedside in detail and addressed all concerns ? Labs, electrolytes, radiology, investigations and test results reviewed ? Consult/Nursing/Ancilliary notes on the chart reviewed and appreciated ? Spoke with patient/family at the bedside and answered all the questions that they had Repeat labs in a.m. Electrolyte replacement as per protocol. Patient will be monitored very closely on the floor. Further recommendations as per the hospital course. May dc in am on oral Antibiotics. Subjective Date/time seen: 08/31/23 16:29 Interval history: Patient seen and examined at the bedside. Still has swelling of the right hand which is slowly improving. Right hand pain is under control on meds. Review of Systems Review of Systems: He denies any chest pain, palpitations, fever rigor chills, nausea vomiting, dizziness loss of consciousness All systems reviewed & are unremarkable except as noted in HPI and below Exam Narrative: GENERAL: Pleasant, in no acute distress. Well-nourished. - EYES: EOMI. Anicteric. - HENT: Moist mucous membranes. - LUNGS: Clear to auscultation bilaterally, no wheezing, rhonchi, or rales. - CARDIOVASCULAR: Regular rate and rhythm. No murmur. No JVD. - ABDOMEN: Soft, non-tender and non-distended. No palpable masses. - EXTREMITIES: No edema. Peripheral pulses 2+. Non-tender. - NEUROLOGIC: No focal neurological deficits. CN II-XII grossly intact. - PSYCHIATRIC: Awake, Alert and oriented x 3. Appropriate mood and affect. - SKIN:? right hand swelling and pain slowly improving, wrist movement is restricted, pulse palpable - LYMPH: No cervical lymphadenopathy. Objective Data Vital Signs Vital Signs: Vital Signs - 24 hr 08/30/23 21:27 08/31/23 05:19 08/31/23 08:30 Temperature 36.7 C 36.8 C Pulse Rate 74 72 Respiratory Rate 13 14 Blood Pressure 118/75 108/83 Pulse Oximetry 95 91 Oxygen Delivery Room Air 08/31/23 14:00 Temperature 36.7 C Pulse Rate 69 Respiratory Rate 16 Blood Pressure 109/70 Pulse Oximetry 96 Oxygen Delivery Intake/Output Intake/Output: Intake & Output 08/28/23 08/29/23
[2023-08-31 22:00] VITALS: BP 103/72; PULSE 79; RESP 18; TEMP 36.9; O2SAT 94
[2023-09-01] MEDS: AMPICILLIN SULB 3 GM/NS 100 ML 3 GM/100 ML VIAL IVPB ×4 (02:01→20:59)
[2023-09-01 06:00] VITALS: BP 111/63; PULSE 71; RESP 20; TEMP 37.3; O2SAT 98
[2023-09-01] MEDS: IBUPROFEN 400 MG TABLET 800 MG PO ×3 (06:00→21:00)
[2023-09-01 06:54] LABS: Basophils Absolute Auto 0.1 K/mm3 (0.0-0.1); Eosinophils Absolute Auto 0.2 K/mm3 (0-0.3); Eosinophils Percent Auto 1.3 % (0-4.4); Hematocrit 39.4 % (42.0-52.0); Hemoglobin 13.4 g/dL (14.0-18.0); Immature Granulocyte Absolute 0.22 K/mm3 (0.00-0.031); Immature Granulocyte Percent A 1.8 % (0-0.5); Lymphocytes Absolute Auto 3.01 K/mm3 (0.9-3.2); Lymphocytes Percent Auto 25.2 % (18.3-44.2); Mean Corpuscular Hemoglobin 33.4 pg (26-34); Mean Corpuscular Volume 98.3 fl (80-100); Mean Platelet Volume 9.3 fl (7.4-10.4); Monocytes Absolute Auto 1.4 K/mm3 (0.1-0.6); Monocytes Percent Auto 11.5 % (2.6-8.5); Neutrophils Absolute Auto 7.1 K/mm3 (1.3-6.7); Neutrophils Percent Auto 59.2 % (45.5-73.1); Platelet Count Result 498 k/mm3 (150-375); Red Blood Count 4.01 M/mm3 (4.6-6.20); Red Cell Distribution Width 11.5 % (11.5-14.5)
[2023-09-01 07:32] LABS: Anion Gap 9 mmol/L (8-16); Blood Urea Nitrogen 23 mg/dL (9-20); Calcium 9.2 mg/dL (8.4-10.2); Carbon Dioxide 25 mmol/L (22-30); Chloride 99 mmol/L (98-107); Estimated CRCL calculation 113 ml/min; Estimated Glomerular Filt Rate > 60; Glucose 95 mg/dL (65-110); Potassium 4.3 mmol/L (3.4-5.0); Sodium 133 mmol/L (137-145)
[2023-09-01] MEDS: ENOXAPARIN 40 MG/0.4 ML SYRINGE SUB-Q (10:11)
[2023-09-01] MEDS: SODIUM CHLORIDE 1 GM TABLET PO ×3 (10:11→17:20)
[2023-09-01] MEDS: FAMOTIDINE 20 MG TABLET PO ×2 (10:12→21:00)
[2023-09-01] MEDS: HYDROcodone/acetaminophen (*CRX) 5-325 MG TABLET 1 TAB PO (10:18)
[2023-09-01 13:43] VITALS: BP 105/69; PULSE 72; RESP 16; TEMP 36.8; O2SAT 95
--- NOTE | 2023-09-01 18:06 | PM.IMPN ---
Progress Note: A&P Assessment and Plan (1) Dog bite of right hand with infection: Qualifiers: Encounter type: initial encounter Qualified Code(s): S61.451A - Open bite of right hand, initial encounter; L08.9 - Local infection of the skin and subcutaneous tissue, unspecified; W54.0XXA - Bitten by dog, initial encounter Code(s): S61.451A - Open bite of right hand, initial encounter; L08.9 - Local infection of the skin and subcutaneous tissue, unspecified; W54.0XXA - Bitten by dog, initial encounter Status: Acute (2) Sepsis: Qualifiers: Sepsis acute organ dysfunction status: unspecified Sepsis type: sepsis due to unspecified organism Qualified Code(s): A41.9 - Sepsis, unspecified organism Code(s): A41.9 - Sepsis, unspecified organism Status: Acute (3) Hyponatremia: Code(s): E87.1 - Hypo-osmolality and hyponatremia Status: Acute (4) Right hand pain: Code(s): M79.641 - Pain in right hand Status: Acute (5) Leukocytosis: Code(s): D72.829 - Elevated white blood cell count, unspecified Status: Acute Plan Right hand and arm cellulitis continue with IV unasyn (Day #7), WBC was showing downward trend, currently at 12. Starting to see the wrinkles on his right hand 2/2 relative decrease in edema. Patient has restricted movement of right hand and right wrist. I have discussed this case with plastic surgeon, appreciate plastic surgeon's recommendations. No indication of surgical intervention, Continue with high dose Motrin, warm compression Increased hydrocodone dose from 5/325 to 7.5/325 mg p.r.n. as needed Chronic hyponatremia Encourage better PO and salt intake. ctm. Add sodium chloride 1 g t.i.d. p.o. Sodium level is 133 today lovenox qday for DVT prophlyaxis ? Patient seen and examined at bedside during my morning rounds ? Collaborated with patient's nurse at the bedside in detail and addressed all concerns ? Labs, electrolytes, radiology, investigations and test results reviewed ? Consult/Nursing/Ancilliary notes on the chart reviewed and appreciated ? Spoke with patient/family at the bedside and answered all the questions that they had Repeat labs in a.m. Electrolyte replacement as per protocol. Patient will be monitored very closely on the floor. Further recommendations as per the hospital course. May dc in am on oral Antibiotics and oral pain meds if he remains stable Subjective Date/time seen: 09/01/23 18:06 Interval history: Patient lying in bed during midmorning rounds. Still has swelling of the right hand which is slowly improving. Complains of little more pain in the right hand for which pain meds are increased. Review of Systems Review of Systems: He denies any chest pain, palpitations, fever rigor chills, nausea vomiting, dizziness loss of consciousness All systems reviewed & are unremarkable except as noted in HPI and below Exam Narrative: GENERAL: Pleasant, in no acute distress. Well-nourished. - EYES: EOMI. Anicteric. - HENT: Moist mucous membranes. - LUNGS: Clear to auscultation bilaterally, no wheezing, rhonchi, or rales. - CARDIOVASCULAR: Regular rate and rhythm. No murmur. No JVD. - ABDOMEN: Soft, non-tender and non-distended. No palpable masses. - EXTREMITIES: No edema. Peripheral pulses 2+. Non-tender. - NEUROLOGIC: No focal neurological deficits. CN II-XII grossly intact. - PSYCHIATRIC: Awake, Alert and oriented x 3. Appropriate mood and affect. - SKIN:? right hand swelling and pain slowly improving, wrist movement is restricted, pulse palpable - LYMPH: No cervical lymphadenopathy. Objective Data Vital Signs Vital Signs: Vital Signs - 24 hr 08/31/23 22:00 09/01/23 06:00 09/01/23 13:43 Temperature 36.9 C 37.3 C 36.8 C Pulse Rate 79 71 72 Respiratory Rate 18 20 16 Blood Pressure 103/72 111/63 105/69 Pulse Oximetry 94 98 95 Intake/Output Intake/Output: Intake & Output
--- NOTE | 2023-09-01 18:31 | PC.NURSE ---
MD requested this RN to call plastic MD to see if he was ready for D/C; MD stated he would d/c if so. Plastics agreeable. Left message with MD x 2. Pt pain been managed with norco and occasional IVP dilaudid. Pt concerned that pain no controlled. Called MD again to inform him of readiness for d/c and pain issues. MD okay with increasing norco to 7.5. MD increased norco but decreased frequency. Will continue to assess and treat patient pain appropriately.
[2023-09-01] MEDS: HYDROcodone/acetaminophen (*CRX) 7.5-325 MG TABLET 1 TAB PO (21:00)
[2023-09-01 21:37] VITALS: BP 102/78; PULSE 73; RESP 18; TEMP 37.1; O2SAT 99
[2023-09-02] MEDS: HYDROcodone/acetaminophen (*CRX) 7.5-325 MG TABLET 1 TAB PO ×2 (04:49→09:50)
[2023-09-02] MEDS: IBUPROFEN 400 MG TABLET 800 MG PO (04:50)
[2023-09-02 05:29] VITALS: BP 103/73; PULSE 62; RESP 18; TEMP 37.2; O2SAT 96
[2023-09-02 08:38] LABS: Basophils Absolute Auto 0.1 K/mm3 (0.0-0.1); Basophils Percent Auto 0.7 % (0.2-1.2); Eosinophils Absolute Auto 0.2 K/mm3 (0-0.3); Eosinophils Percent Auto 1.7 % (0-4.4); Hematocrit 41.5 % (42.0-52.0); Hemoglobin 13.8 g/dL (14.0-18.0); Immature Granulocyte Absolute 0.14 K/mm3 (0.00-0.031); Immature Granulocyte Percent A 1.3 % (0-0.5); Lymphocytes Absolute Auto 3.16 K/mm3 (0.9-3.2); Lymphocytes Percent Auto 29.1 % (18.3-44.2); Mean Corpuscular HGB Conc 33.3 g/dl (32-36); Mean Corpuscular Hemoglobin 32.7 pg (26-34); Mean Corpuscular Volume 98.3 fl (80-100); Mean Platelet Volume 9.1 fl (7.4-10.4); Monocytes Percent Auto 9.4 % (2.6-8.5); Neutrophils Absolute Auto 6.3 K/mm3 (1.3-6.7); Neutrophils Percent Auto 57.8 % (45.5-73.1); Platelet Count Result 581 k/mm3 (150-375); Red Blood Count 4.22 M/mm3 (4.6-6.20); Red Cell Distribution Width 11.7 % (11.5-14.5); White Blood Count 10.9 K/mm3 (4.5-10.0)
--- NOTE | 2023-09-02 09:44 | PCNWS ---
Weekly nutritional screen. Patient is tolerating current regular diet with adequate intake 100% all meals. No weight loss reported. No nutritional needs at this time.
[2023-09-02] MEDS: ENOXAPARIN 40 MG/0.4 ML SYRINGE SUB-Q (09:50)
[2023-09-02] MEDS: FAMOTIDINE 20 MG TABLET PO (09:51)
[2023-09-02] MEDS: AMOXICILLIN/CLAVULANATE K 875-125 MG TAB 1 TABLET PO (09:51)
[2023-09-02] MEDS: SODIUM CHLORIDE 1 GM TABLET PO (09:51)
--- NOTE | 2023-09-02 10:43 | PM.DS ---
DS: Admitting Diagnosis Discharge Date 09/02/2023: Admitting Diagnosis Right hand cellulitis Dog bite Sepsis DS: Discharge Diagnosis Discharge Diagnosis (1) Dog bite of right hand with infection: Qualifiers: Encounter type: initial encounter Qualified Code(s): S61.451A - Open bite of right hand, initial encounter; L08.9 - Local infection of the skin and subcutaneous tissue, unspecified; W54.0XXA - Bitten by dog, initial encounter Code(s): S61.451A - Open bite of right hand, initial encounter; L08.9 - Local infection of the skin and subcutaneous tissue, unspecified; W54.0XXA - Bitten by dog, initial encounter Status: Acute (2) Sepsis: Qualifiers: Sepsis acute organ dysfunction status: unspecified Sepsis type: sepsis due to unspecified organism Qualified Code(s): A41.9 - Sepsis, unspecified organism Code(s): A41.9 - Sepsis, unspecified organism Status: Acute (3) Right hand pain: Code(s): M79.641 - Pain in right hand Status: Acute (4) Leukocytosis: Code(s): D72.829 - Elevated white blood cell count, unspecified Status: Acute (5) Hyponatremia: Code(s): E87.1 - Hypo-osmolality and hyponatremia Status: Acute (6) Tobacco abuse counseling: Code(s): Z71.6 - Tobacco abuse counseling Status: Acute (7) Nicotine dependence, cigarettes, with other nicotine-induced disorders: Code(s): F17.218 - Nicotine dependence, cigarettes, with other nicotine-induced disorders Status: Acute DS: Summary Hospital Course Reason for hospitalization: Patient admitted with the dog bite leading to right hand swelling/infection /sepsis. Hospital Course: H&P: HPI History of Present Illness Date/Time: 08/26/23? 17:12 Chief Complaint: right hand swelling/ dog bite Narrative: pt reports dog bite recently. he did nothing/nor did he have it evaluted, went back to work. on friday, 1 day prior to admission his hand was extremely swollen. better now since arrival. still with pain HOSPITAL COURSE ... 08/26/2023 - 09/02/2023: Patient admitted with dog bite a few days prior to presentation in the ER. The hand was swollen, infected and patient was septic. Treated aggressively in the ER and on the floor. He has received 8 days of IV Unasyn. WBC count is the trending down from a 16.5 on admission to 10.9 today. Plastic surgery evaluated the patient and did not see any need for surgery at this time. Swelling in the right hand is slowly beginning to decline and patient is gaining function back of the right hand and right wrist. He has been cleared by Plastic surgery to be discharged home. I will discharge him on Augmentin 875 mg p.o. b.i.d. for 1 more week to complete 2 weeks of IV antibiotics. He is advised to follow up closely with his PCP and Plastic surgery as an outpatient and minimize work from the right hand until it has healed completely. He also had borderline hyponatremia for which he was started on sodium chloride pills. His sodium level is stable on discharge. Detailed discharge directions delivered to the patient by myself and my nursing staff, who verbalizes understanding and is very happy and satisfied with the plan. Patient has been advised to continue all medications as prescribed and advised, and f/u with PCP within 1 week. Patient is stable from medical standpoint to be discharged. Total time spent during patient evaluation and assessment, discussion with the nurse/family, addressing discharge medications/scripts and coordination of care for safe discharge was in excess of 35 minutes. Dependence on nicotine from cigarettes: Tobacco abuse counseling: Patient smokes cigarettes on a chronic basis. Strictly advised patient to cut down on or quit smoking. Nicotine patch ordered. ~5 minutes spent on tobacco cessation counseling with the patient. Websites - http://smokefree.gov & http://www.quitnet.com ? Quitlines - 8-101-DGBQ-NOW
== END 2023-09-02 12:10 | disposition home or self-care (01) | DRG 383 ==
LOC: ANHED 21:09 → ANH3MEDSUR 23:40
PROVIDERS: General Practice; Hospitalist; Physician Assistant; Admitting Provider Internal Medicine; Emergency Provider Physician Assistant; PCP Emergency Medicine; Visit Provider Family Medicine
DX: L03.113 Cellulitis of right upper limb (principal); S51.851A Open bite of right forearm, initial encounter; S61.451A Open bite of right hand, initial encounter; E87.1 Hypo-osmolality and hyponatremia; W54.0XXA Bitten by dog, initial encounter
CPT/HCPCS: 36415; 71046; 73110; 73130; 80048; 80053; 81001; 83605; 84145; 85025; 85027; 85610; 85652; 85730; 86140; 87040; 90471; 90715; 96365; 96366; 96375; 96376; 99285; A9270; G0378; G0379; J0295; J1170; J1650; J2270; J2405; J7030